=== PATIENT | female | born 1960 | race Asian ===

== ENCOUNTER 2019-09-25 09:17 | Outpatient (CLI) | payer MEDICAID ==
[~2019-09-25 09:17] MED LIST: AMLO1CAP10 PO; BARIUM SULFATE 340 ML SUSP.RECON***PROCEDURE AREA ONLY**DONT ENTER PO ONE; BARIUM SULFATE 700 MG TABLET PO ONE; LOPE2CAP PO; METF500T PO; ONDA8TAB9 PO; PANT20TA3 PO; POTA10CA44 PO; SIMETHICONE/SOD BICARB/CIT AC PACKET PO ONE; SIMV-42 PO
== END 2019-09-25 23:59 | disposition home or self-care (01) ==
LOC: RAD 09:17
PROVIDERS: ATTEND Nurse Practitioner
DX: R13.10 Dysphagia, unspecified (principal)
CPT/HCPCS: 74220